=== PATIENT | male | born 1950 | race Caucasian/White ===

== ENCOUNTER 2023-08-10 05:43 | Day surgery (SDC) | payer MEDICARE, BC ==
[~2023-08-10] VITALS: Ht 177.8 cm; Wt 72.6 kg
[~2023-08-10 05:43] MED LIST: EMPA25TA PO; RED600CA5 PO; SODIUM CHLORIDE 0.9% 1,000 ML IV SCH; TRIA1TAB92 MT; [UNRECOGNIZED DRUG - CODE] MC
[2023-08-10] MEDS ORDERED: MIDAZOLAM HCL 2 MG/2 ML VIAL ONE (07:36)
[2023-08-10] MEDS ORDERED: DEXAMETHASONE 4MG/ML 1ML VIAL ONE (08:04)
[2023-08-10] MEDS ORDERED: ROCURONIUM BROMIDE 10MG/ML VIAL 5ML IV ONE (08:04)
[2023-08-10] MEDS ORDERED: CEFAZOLIN SODIUM 1000MG/VIAL ONE (08:04)
[2023-08-10] MEDS ORDERED: PROPOFOL 200MG/20ML VIAL IV ONE (08:04)
[2023-08-10] MEDS ORDERED: SUCCINYLCHOLINE CHLORIDE 200MG/10ML IV ONE (08:04)
[2023-08-10] MEDS ORDERED: ONDANSETRON HCL 4MG/2ML INJ ONE (08:04)
[2023-08-10] MEDS ORDERED: GLYCOPYRROLATE 0.2 MG/ML 2ML VIAL ONE (08:05)
[2023-08-10] MEDS ORDERED: KETOROLAC 30MG/ML VIAL ONE (08:05)
[2023-08-10] MEDS ORDERED: FENTANYL CITRATE/PF 50MCG/ML 2ML VIAL ONE ×2 (08:05→08:30)
[2023-08-10] MEDS ORDERED: EPHEDRINE SULFATE 50MG/ML VIAL ONE (08:50)
[2023-08-10] MEDS ORDERED: BACITRACIN 14GM TUBE TOP ONE (10:43)
== END 2023-08-10 12:50 | disposition home or self-care (01) ==
LOC: OR 05:43
PROVIDERS: ATTEND Urology
DX: C61 Malignant neoplasm of prostate (principal); E11.22 Type 2 diabetes mellitus with diabetic chronic kidney disease; N18.30 Chronic kidney disease, stage 3 unspecified; Z85.038 Personal history of other malignant neoplasm of large intestine; Z79.899 Other long term (current) drug therapy; Z98.890 Other specified postprocedural states
CPT/HCPCS: 55880; 51102; 82962; J3010; J0690; J1100; J3490 ×3; J1885; J2250; J2405; J2704; J0330; A4217; Z7610 ×11; C1729